=== PATIENT | male | born 1965 ===

== ENCOUNTER 2020-11-29 06:15 | Day surgery (SDC) | payer BC ==
[~2020-11-29] VITALS: Ht 180.3 cm; Wt 86.5 kg
[2020-11-29] MEDS ORDERED: IBU800 M1 PO (06:50)
[2020-11-29] MEDS ORDERED: CYCL10 PO (06:50)
--- NOTE | 2020-11-29 07:54 | NUR ---
11/29/20 0754 Nancy Fernandes PT RESTING ON RECLINER. AWAKE, ALERT, ORIENTED. VS WNL. PT TOLERATING COFFEE. COVERSATIVE AND SMILING.WILL CONTINUE TO MONITOR.
== END 2020-11-29 08:13 | disposition home or self-care (01) ==
LOC: ORSCSDS 06:15
PROVIDERS: Orthopaedic Surgery
PROC: 01N50ZZ Release Median Nerve, Open Approach (ICD-10-PCS; principal; 2020-11-29 07:30)
DX: G56.01 Carpal tunnel syndrome, right upper limb (principal); F17.210 Nicotine dependence, cigarettes, uncomplicated; Z79.899 Other long term (current) drug therapy
CPT/HCPCS: J2250; J2704; J3010; J7120

== ENCOUNTER → 2022-07-27 | Outpatient (CLI) | payer BC ==
[~2022-07-27] MED LIST: CYCL10 PO; IBU800 M1 PO
[2022-07-27 13:15] LABS: Source, Urine Clean Catch
[2022-07-27 19:01] LABS: Bacteria Few /hpf; Red Blood Cells, Urine 0-2 /hpf (0-2); Squamous Epithelial Cells Few /hpf (Few)
== END | disposition home or self-care (01) ==
LOC: LAB 12:45 → LAB SHORT 12:45
PROVIDERS: Internal Medicine Endocrinology, Diabetes & Metabolism
DX: R31.9 Hematuria, unspecified (principal)
CPT/HCPCS: 81015; 87086

== ENCOUNTER 2023-09-19 11:44 | Day surgery (SDC) | payer BC ==
[~2023-09-19] VITALS: Ht 177.8 cm; Wt 88.7 kg
[~2023-09-19 11:44] MED LIST changes: +ASPI81CH PO; +LISI20 PO; +VOLTAREN ARTHRI20 GM
[2023-09-19 14:14] VITALS: BP 110/78
== END 2023-09-19 14:05 | disposition home or self-care (01) ==
LOC: ORSCSDS 11:44
PROVIDERS: Surgery
PROC: 0DBL8ZX Excision of Transverse Colon, Via Natural or Artificial Opening Endoscopic, Diagnostic (ICD-10-PCS; principal; 2023-09-19 13:00)
PROC: 0DBP8ZX Excision of Rectum, Via Natural or Artificial Opening Endoscopic, Diagnostic (ICD-10-PCS; principal; 2023-09-19 13:00)
PROC: 0DBM8ZX Excision of Descending Colon, Via Natural or Artificial Opening Endoscopic, Diagnostic (ICD-10-PCS; principal; 2023-09-19 13:00)
DX: Z12.11 Encounter for screening for malignant neoplasm of colon (principal); Z86.010 Personal history of colon polyps; K62.1 Rectal polyp; D12.3 Benign neoplasm of transverse colon; D12.4 Benign neoplasm of descending colon; Z87.891 Personal history of nicotine dependence; Z79.82 Long term (current) use of aspirin; Z79.899 Other long term (current) drug therapy
CPT/HCPCS: 88305; J2704; J7120